=== PATIENT | male | born 1985 | race Caucasian/White ===

== ENCOUNTER 2018-10-14 09:22 | Day surgery (SDC) | payer OTHER ==
[2018-10-14] MEDS: LACTATED RINGER'S 1,000 ML IV (10:42)
[2018-10-14] MEDS ORDERED: POLYMYXIN/BACITRACIN 1L IRRIG (11:09)
[2018-10-14] MEDS ORDERED: LIDOCAINE 2% (SDV) 5 ML INJ (11:27)
[2018-10-14] MEDS ORDERED: DESFLURANE 15 MIN (11:27)
[2018-10-14] MEDS ORDERED: MIDAZOLAM 1 MG/ML 2 ML INJ (11:28)
[2018-10-14] MEDS ORDERED: ROPIVACAINE 0.5 % 30 ML VIAL (11:28)
[2018-10-14] MEDS ORDERED: FENTAnyl 50 MCG/ML VIAL (11:28)
[2018-10-14] MEDS ORDERED: DIPHENHYDRAMINE 50 MG INJ IV (11:30)
[2018-10-14] MEDS ORDERED: FENTAnyl 50 MCG/ML VIAL IV ×3 (11:30)
[2018-10-14] MEDS ORDERED: ONDANSETRON 4 MG INJ IV (11:30)
[2018-10-14] MEDS ORDERED: ALBUTEROL 0.083% (NEB) 2.5 MG/3 ML AMP HHN (11:30)
[2018-10-14] MEDS ORDERED: HYDROmorphONE 1 MG/5 ML IV SYRINGE IV ×3 (11:30)
[2018-10-14] MEDS ORDERED: METOCLOPRAMIDE 10 MG INJ IV (11:30)
[2018-10-14] MEDS ORDERED: MEPERIDINE 25 MG INJ IV (11:30)
[2018-10-14] MEDS ORDERED: SUCCINYLCHOLINE CHLORIDE 100 MG/5 ML SYG IV (11:56)
[2018-10-14] MEDS ORDERED: CEFAZOLIN 1 GM INJ (11:56)
[2018-10-14] MEDS ORDERED: PROPOFOL 20 ML (11:56)
[2018-10-14] MEDS ORDERED: ROCURONIUM 50 MG INJ (11:56)
[2018-10-14] MEDS ORDERED: SUGAMMADEX SODIUM 200 MG/2 ML VIAL IV (11:56)
[2018-10-14] MEDS ORDERED: morphine 2 MG INJ IV (12:00)
[2018-10-14] MEDS: ROPIVACAINE 0.5 % 30 ML VIAL (12:23)
[2018-10-14] MEDS: POLYMYXIN/BACITRACIN 1L IRRIG IRR (12:23)
[2018-10-14] MEDS ORDERED: POVIDONE IODINE 10% 28.4 GM OINT (13:01)
[2018-10-14] MEDS ORDERED: BACITRACIN/POLYMYXIN 28.35 GM OINT TOP (13:27)
[2018-10-14] MEDS: KETOROLAC 30 MG INJ IV (14:17)
== END 2018-10-14 15:58 | disposition home or self-care (01) ==
LOC: SDS 09:22
DX: S83.511A Sprain of anterior cruciate ligament of right knee, initial encounter (principal); X58.XXXA Exposure to other specified factors, initial encounter; Y93.67 Activity, basketball
CPT/HCPCS: 29888; 82306

== ENCOUNTER 2018-11-30 17:26 | Emergency (ER) | payer OTHER ==
[2018-11-30] MEDS: METHYLPREDNISOLONE 125 MG INJ IM (18:31)
[2018-11-30] MEDS: KETOROLAC 30 MG INJ IM (18:32)
[2018-11-30 18:33] LABS: ADD MAN DIFF? NO
[2018-11-30 18:35] LABS: WHITE BLOOD COUNT 7.6 10^3/ul (4.8-10.8)
[2018-11-30 18:35] LABS: BASOPHIL # 0.1 10^3/ul (0.0-0.1); BASOPHILS % 0.7 % (0.0-2.0); EOSINOPHILS # 0.3 10^3/ul (0.0-0.5); HEMATOCRIT 44.5 % (42.0-52.0); HEMOGLOBIN 15.1 g/dl (14.0-18.0); MEAN CORPUSCULAR HEMOGLOBIN 29.1 pg (29.0-33.0); MEAN CORPUSCULAR HGB CONC 33.9 g/dl (32.0-37.0); MEAN CORPUSCULAR VOLUME 85.7 fl (82.0-101.0); MEAN PLATELET VOLUME 10.4 fl (7.4-10.4); MONOCYTE # 0.7 10^3/ul (0.3-0.9); MONOCYTES % 9.6 % (0.0-11.0); NEUTROPHIL # 4.5 10^3/ul (1.6-7.5); NEUTROPHILS % 58.8 % (39.0-77.0); PLATELET COUNT 243 10^3/UL (140-415); RED BLOOD COUNT 5.19 10^6/ul (4.70-6.10); RED CELL DISTRIBUTION WIDTH 12.5 % (11.5-14.5)
== END 2018-11-30 19:05 | disposition home or self-care (01) ==
LOC: FTE 17:26
DX: M70.51 Other bursitis of knee, right knee (principal); Y93.9 Activity, unspecified
CPT/HCPCS: 36415; 85025; 96372; 99284-25